=== PATIENT | male | born 1935 | race Caucasian/White ===

== ENCOUNTER 2018-02-23 11:50 | Outpatient (CLI) | payer MEDICARE, OTHER ==
--- NOTE | 2018-02-23 12:39 | XRAY Report ---
Procedure Date: 02/23/2018 Accession Number: [id number] / [id number] Procedure: XR - Chest 2 View X-Ray CPT Code: 04149 FULL RESULT: EXAM: Chest 2 View X-Ray DATE: 02/23/2018 12:33 PM CLINICAL HISTORY: COUGH COMPARISON: 11/10/2015 TECHNIQUE: 2 views. FINDINGS: Lungs/Pleura: Peripheral fibrotic changes appear stable. No new consolidation, effusion, or pneumothorax. Mediastinum: Stable pacemaker. No cardiomegaly. Other: None. IMPRESSION: Stable peripheral fibrosis. No evidence of acute cardiopulmonary disease. RADIA
== END 2018-02-23 11:51 | disposition home or self-care (01) ==
LOC: DI 11:50
PROVIDERS: ATTEND Internal Medicine
DX: R05 Cough (principal)
CPT/HCPCS: 71046

== ENCOUNTER 2018-05-12 09:00 | Outpatient (CLI) | payer MEDICARE, OTHER ==
[2018-05-12 13:51] LABS: CRP - C-REACTIVE PROTEIN 3.1 mg/dL (0-1.0)
[2018-05-12 13:54] LABS: URIC ACID 5.9 mg/dL (2.6-7.2)
[2018-05-12 19:22] LABS: RHEUMATOID FACTOR NEGATIVE (Negative)
[2018-05-15 14:32] LABS: ANA SCREEN POSITIVE (NEGATIVE)
== END 2018-05-12 09:01 | disposition home or self-care (01) ==
LOC: LAB.WCP 09:00
PROVIDERS: ATTEND Internal Medicine Rheumatology
DX: M25.50 Pain in unspecified joint (principal); R70.0 Elevated erythrocyte sedimentation rate
CPT/HCPCS: 36415; 84550; 85651; 86038; 86039; 86140; 86200; 86430

== ENCOUNTER 2018-05-27 14:36 | Emergency (ER) | payer MEDICARE, OTHER ==
[2018-05-27] MEDS ORDERED: ONDANSETRON 4 MG/2 ML VIAL IVP STA (15:21)
--- NOTE | 2018-05-27 15:24 | ED Physician Documentation ---
PD HPI ABD PAIN - Stated complaint Stated Complaint: RLQ abd pain - Chief complaint Chief Complaint: Abd Pain - History obtained from History obtained from: Patient, Family - History of Present Illness Timing - onset: How many weeks ago (3-4) Timing - duration: Weeks (3-4) Timing - details: Gradual onset Pain level max: 8 Pain level now: 5 Quality: Aching, Pain Location: RLQ Radiation: No: Chest, , Lower back, Left flank, Left shoulder, Right flank, Right shoulder, Upper back Improved by: Other (rest) Worsened by: Moving, Other (coughing) Associated symptoms: Nausea, Dysuria (mild). No: Fever, Vomiting, Hematemesis, Diarrhea, Constipation, Melena, Hematochezia, Hematuria, Chest pain Similar symptoms before: Has not had sx before Recently seen: Not recently seen Review of Systems Ten Systems: 10 systems reviewed and negative Constitutional: denies: Fever, Chills Ears: denies: Ear pain Nose: denies: Rhinorrhea / runny nose, Congestion Throat: denies: Sore throat Cardiac: denies: Chest pain / pressure Respiratory: denies: Cough GI: reports: Nausea. denies: Vomiting, Diarrhea Skin: denies: Rash Musculoskeletal: denies: Neck pain, Back pain Neurologic: denies: Headache PD PAST MEDICAL HISTORY - Past Medical History Cardiovascular: Other (heart block) Respiratory: None Endocrine/Autoimmune: None GI: GERD, Colon polyps : None HEENT: Glaucoma Psych: None Musculoskeletal: Gout Derm: Eczema - Past Surgical History Past Surgical History: Yes General: Colonoscopy Ortho: Knee replacement Cardiovascular: Pacemaker HEENT: Cataracts, Detached retina repair, Tonsil/Adenoidectomy - Present Medications Home Medications: Ambulatory Orders Medication Instructions Recorded Confirmed Cholecalciferol (Vitamin D3) 2,000 unit PO DAILY 05/18/13 11/10/15 [Vitamin D3] Dorzolamide HCl/Timolol Maleat 10 ml OP BID 05/18/13 11/10/15 [Dorzolamide-Timolol Eye Drops] Ferrous Gluconate 324 mg PO DAILY 05/18/13 11/10/15 Lactobacillus Rhamnosus GG 1 each PO DAILY 05/18/13 11/10/15 [Probiotic] Latanoprost 0.005% Ophth Drops 1 drops OPTH QPM 05/18/13 11/10/15 [Xalatan] Saw [place] 160 mg PO DAILY 05/18/13 11/10/15 Timolol 0.5% Ophth Drops [Timoptic] 1 drops OPTH BID 05/18/13 11/10/15 Turmeric Root Extract [Turmeric] 500 mg PO DAILY 05/18/13 11/10/15 Cetirizine [ZyrTEC] 10 mg ORAL DAILY 11/10/15 11/10/15 Indomethacin 25 mg ORAL TID PRN 11/10/15 11/10/15 diphenhydrAMINE [Benadryl] 25 mg ORAL QPM 11/10/15 11/10/15 Meloxicam [Mobic] 7.5 mg PO BID PRN #20 tablet 05/27/18 Polyethylene Glycol 3350 [Miralax] 17 gm PO DAILY PRN #1 bottle 05/27/18 - Allergies Allergies/Adverse Reactions: Allergies Allergy/AdvReac Type Severity Reaction Status Date / Time cephalexin monohydrate * Allergy Severe Respiratory Verified 05/27/18 14:55 [From Keflex] - Social History Does the pt smoke?: No Smoking Status: Never smoker Does the pt drink ETOH?: Yes Does the pt have substance abuse?: No - Immunizations Immunizations are current?: Yes - POLST Patient has POLST: No PD ED PE NORMAL - Vitals Vital signs reviewed: Yes - General General: Alert and oriented X 3, No acute distress - HEENT HEENT: Moist mucous membranes - Neck Neck: Supple, no meningeal sign - Cardiac Cardiac: RRR, Strong equal pulses - Respiratory Respiratory: No respiratory distress, Clear bilaterally - Abdomen Abdomen: Soft, Non tender, Non distended - Back Back: No CVA TTP, No spinal TTP - Derm Derm: Warm and dry - Extremities Extremities: No tenderness to palpate, Normal ROM s pain, No edema, No calf tenderness / cord - Neuro Neuro: Alert and oriented X 3 Results - Vitals Vitals: Vital Signs - 24 hr 05/27/18 14:51 Temperature 36.3 C L Heart Rate 64 Respiratory 18 Rate Blood Pressure 133/101 H O2 Saturation 98 Oxygen O2 Source Room air - Rads (name of study) CT abd/pelvis Radiology: Prelim report reviewed, EMP read contemporaneously, See rad report (Findings suggestive of epiploic appendagitis in the left abdomen, adjacent to the descending colon. If there is no pain currently, this could be early or resolving. 2. No other finding suspicious for acute infectious or inflammatory process in the abdomen or pelvis. Specifically, no evidence for acute appendicitis or diverticulitis. 3. Findings of interstitial lung disease in usual interstitial pneumonia (UIP) distribution in the lung bases. ) PD MEDICAL DECISION MAKING - ED course Complexity details: reviewed results, re-evaluated patient, considered differential, d/w patient, d/w family ED course: Patient is an 82-year-old male with abdominal pain for the past 3-4 weeks. Does appear to have resolving epiploic appendicitis on CT. Suspect his pain will improve over the next week or so. Also appears to have constipation and will place on MiraLAX for this. Normal appendix. No diverticulitis. No acute laboratory abnormalities to explain his symptoms. Patient and family counseled regarding signs and symptoms for which I believe and urgent re-evaluation would be necessary. Patient with good understanding of and agreement to plan and is comfortable going home at this time This document was made in part using voice recognition software. While efforts are made to proofread this document, sound alike and grammatical errors may occur. - Sepsis Event Vital Signs: Vital Signs - 24 hr 05/27/18 14:51 Temperature 36.3 C L Heart Rate 64 Respiratory 18 Rate Blood Pressure 133/101 H O2 Saturation 98 Oxygen O2 Source Room air Departure - Departure Disposition: 01 Home, Self Care Clinical Impression: Epiploic appendagitis Abdominal pain Qualifiers: Abdominal location: right lower quadrant Qualified Code(s): R10.31 - Right lower quadrant pain Constipation Qualifiers: Constipation type: unspecified constipation type Qualified Code(s): K59.00 - Constipation, unspecified Condition: Good Instructions: ED Abdominal Pain Unkn Cause, ED Constipation Follow-Up: Michelle Camacho MD [Primary Care Provider] - Within 1 week Prescriptions: Meloxicam [Mobic] 7.5 mg PO BID PRN #20 tablet PRN Reason: Pain Polyethylene Glycol 3350 [Miralax] 17 gm PO DAILY PRN #1 bottle PRN Reason: Constipation Comments: Drink plenty of fluids. Return if you worsen. This should improve over the next week. Discharge Date/Time: 05/27/18 17:50
[2018-05-27] MEDS ORDERED: IOPAMIDOL-300 100 ML VIAL ONE (15:29)
[2018-05-27 15:52] LABS: BASOPHILS # (AUTO) 0.1 10^3/uL (0.0-0.1); BASOPHILS % (AUTO) 1.1 %; EOSINOPHILS # (AUTO) 0.3 10^3/uL (0.0-0.7); EOSINOPHILS % (AUTO) 4.6 %; HGB - HEMOGLOBIN 11.9 g/dL (14.0-18.0); LYMPHOCYTES # (AUTO) 1.5 10^3/uL (1.5-3.5); LYMPHOCYTES % (AUTO) 25.5 %; MEAN CORPUSCULAR HEMOGLOBIN 29.9 pg (27.0-31.0); MEAN CORPUSCULAR HGB CONC 33.2 g/dL (32.0-36.0); MEAN CORPUSCULAR VOLUME 90.1 fL (80.0-94.0); MEAN PLATELET VOLUME 6.4 fL (7.4-11.4); MONOCYTES # (AUTO) 0.5 10^3/uL (0.0-1.0); MONOCYTES % (AUTO) 9.1 %; NEUTROPHILS # (AUTO) 3.6 10^3/uL (1.5-6.6); NEUTROPHILS % (AUTO) 59.7 %; PLT - PLATELET COUNT 276 10^3/uL (130-450); RED BLOOD COUNT 3.99 10^6/uL (4.70-6.10); RED CELL DISTRIBUTION WIDTH 15.8 % (12.0-15.0)
[2018-05-27 15:58] LABS: ALBUMIN/GLOBULIN RATIO 1.1 (1.0-2.2); BILIRUBIN,TOTAL 0.7 mg/dL (0.2-1.0); CALCIUM 9.1 mg/dL (8.5-10.3); CREATININE 0.8 mg/dL (0.6-1.2); TOTAL PROTEIN 7.6 g/dL (6.7-8.2)
[2018-05-27 16:09] LABS: BILIRUBIN,URINE NEGATIVE (NEGATIVE); GLUCOSE, URINE (UA) NEGATIVE (NEGATIVE); KETONES,URINE (UA) NEGATIVE (NEGATIVE); LEUKOCYTE ESTERASE, URINE NEGATIVE (NEGATIVE); NITRITE,URINE NEGATIVE (NEGATIVE); OCCULT BLOOD,URINE TRACE-INTA (NEGATIVE); PH,URINE 6.5 PH (5.0-7.5); PROTEIN,URINE NEGATIVE (NEGATIVE); UROBILINOGEN,URINE 0.2 (NORMAL) E.U./dL (NORMAL)
[2018-05-27 16:10] LABS: CLARITY,URINE CLEAR (CLEAR)
[2018-05-27] MEDS ORDERED: IOPAMIDOL-300 100 ML VIAL IVP ONE (16:34)
--- NOTE | 2018-05-27 17:19 | CT Report ---
Reason: RLQ abd pain Procedure Date: 05/27/2018 Accession Number: [id number] / [id number] Procedure: CT - Abdomen/Pelvis W/ CPT Code: FULL RESULT: EXAM: CT ABDOMEN AND PELVIS EXAM DATE: 05/27/2018 04:35 PM. CLINICAL HISTORY: RLQ abd pain. COMPARISONS: CT of the abdomen and pelvis from 06/22/2007. CTA chest from 11/10/2015. TECHNIQUE: Routine helical CT imaging was performed through the abdomen and pelvis. IV contrast: 100 cc Isovue-370. Enteric contrast: No. Reconstructions: Coronal and sagittal. In accordance with CT protocol optimization, one or more of the following dose reduction techniques were utilized for this exam: automated exposure control, adjustment of mA and/or KV based on patient size, or use of iterative reconstructive technique. FINDINGS: Lung Bases: There are peripheral reticular opacities in the lung bases, present previously and suggestive of interstitial lung disease. Cardiac leads demonstrated in the right atrium and ventricle. Liver: There is a subcentimeter hypoattenuating focus in segment 7, which is too small to characterize but was present previously. Otherwise unremarkable. Gallbladder/Bile Ducts: Unremarkable. Spleen: There is a 9 mm enhancing lesion in the medial spleen (series 3, image 17), which is indeterminate but could represent a hemangioma. A faintly enhancing lesion appears to have been present in 2017. There is a subcentimeter hypoattenuating focus in the posterior aspect (series 3, image 18), which is indeterminate but may also have been present in 2006. Pancreas: Unremarkable. Adrenal Glands: No nodules. Kidneys: There is an ill-defined hypoattenuating focus in the interpolar region of the left kidney (series 3, image 36), which is too small to characterize. No hydronephrosis. Peritoneal Cavity/Bowel: No evidence of bowel obstruction or inflammation. Appendix is within normal limits. There is diverticulosis of the descending and sigmoid colon. No evidence for acute diverticulitis. There is an ovoid area of haziness in the left abdomen, along the antimesenteric border of the descending colon (series 3, image 46). The appearance is suggestive of epiploic appendagitis. Pelvic Organs: Urinary bladder is moderately distended. No pelvic adenopathy or free fluid. Vasculature: No abdominal aortic aneurysm. Bones: Multilevel degenerative changes are present in the spine. No suspicious osseous lesion. Other: No retroperitoneal adenopathy. IMPRESSION: 1. Findings suggestive of epiploic appendagitis in the left abdomen, adjacent to the descending colon. If there is no pain currently, this could be early or resolving. 2. No other finding suspicious for acute infectious or inflammatory process in the abdomen or pelvis. Specifically, no evidence for acute appendicitis or diverticulitis. 3. Findings of interstitial lung disease in usual interstitial pneumonia (UIP) distribution in the lung bases. RADIA
[2018-05-27 17:45] VITALS: BP 147/86
== END 2018-05-27 17:50 | disposition home or self-care (01) ==
LOC: ED 14:36
DX: K63.89 Other specified diseases of intestine (principal); R10.31 Right lower quadrant pain; K59.00 Constipation, unspecified
CPT/HCPCS: 36415; 74177; 80053; 81003; 83690; 85025; 99283; Q9967; 81001; 87086

== ENCOUNTER 2018-06-09 09:58 | Outpatient (CLI) | payer MEDICARE, OTHER ==
[2018-06-09 13:05] LABS: PT - PROTHROMBIN TIME 11.7 secs (9.9-12.6)
[2018-06-09 13:10] LABS: CREATININE 0.8 mg/dL (0.6-1.2)
== END 2018-06-09 09:59 | disposition home or self-care (01) ==
LOC: LAB.N 09:58
PROVIDERS: ATTEND Orthopaedic Surgery Foot and Ankle Surgery
DX: M47.26 Other spondylosis with radiculopathy, lumbar region (principal)
CPT/HCPCS: 36415; 82565; 84520; 85014; 85049; 85610; 85730

== ENCOUNTER 2018-09-06 10:52 | Day surgery (SDC) | payer MEDICARE, OTHER ==
[2018-09-06] MEDS ORDERED: LACTATED RINGERS 1,000 ML IV ONE ×2 (11:40→11:47)
[2018-09-06] MEDS ORDERED: fentaNYL 250 MCG/5 ML VIAL IVP ONE (11:42)
[2018-09-06] MEDS ORDERED: MIDAZOLAM 2 MG/2 ML VIAL IVP ONE (11:42)
[2018-09-06 12:49] VITALS: BP 102/81
== END 2018-09-06 10:53 | disposition home or self-care (01) ==
LOC: SDS 10:52
PROVIDERS: ATTEND Surgery
PROC: 0DBK8ZZ Excision of Ascending Colon, Via Natural or Artificial Opening Endoscopic (ICD-10-PCS; principal; 2018-09-06 12:15)
DX: Z12.11 Encounter for screening for malignant neoplasm of colon (principal); D12.2 Benign neoplasm of ascending colon; K57.30 Diverticulosis of large intestine without perforation or abscess without bleeding; K64.8 Other hemorrhoids; Z87.891 Personal history of nicotine dependence
CPT/HCPCS: 45385; J3010; J7120

== ENCOUNTER 2018-09-20 08:00 | Outpatient (CLI) | payer MEDICARE, OTHER ==
[2018-09-20 18:58] LABS: BASOPHILS # (AUTO) 0.1 10^3/uL (0.0-0.1); EOSINOPHILS # (AUTO) 0.3 10^3/uL (0.0-0.7); EOSINOPHILS % (AUTO) 4.6 %; HGB - HEMOGLOBIN 11.7 g/dL (14.0-18.0); LYMPHOCYTES # (AUTO) 1.4 10^3/uL (1.5-3.5); LYMPHOCYTES % (AUTO) 25.2 %; MEAN CORPUSCULAR HEMOGLOBIN 29.9 pg (27.0-31.0); MEAN CORPUSCULAR HGB CONC 32.2 g/dL (32.0-36.0); MEAN CORPUSCULAR VOLUME 92.7 fL (80.0-94.0); MEAN PLATELET VOLUME 6.5 fL (7.4-11.4); MONOCYTES # (AUTO) 0.5 10^3/uL (0.0-1.0); MONOCYTES % (AUTO) 8.4 %; NEUTROPHILS # (AUTO) 3.3 10^3/uL (1.5-6.6); NEUTROPHILS % (AUTO) 60.8 %; PLT - PLATELET COUNT 433 10^3/uL (130-450); RED BLOOD COUNT 3.93 10^6/uL (4.70-6.10); RED CELL DISTRIBUTION WIDTH 15.7 % (12.0-15.0); WHITE BLOOD COUNT 5.5 x10^3/uL (4.8-10.8)
[2018-09-20 19:23] LABS: CREATININE 0.9 mg/dL (0.6-1.2)
== END 2018-09-20 08:01 ==
LOC: LAB.N 08:00
PROVIDERS: ATTEND Nurse Anesthetist, Certified Registered
DX: C18.2 Malignant neoplasm of ascending colon (principal); Z95.0 Presence of cardiac pacemaker
CPT/HCPCS: 36415; 80048; 85025; 86850; 86900; 86901

== ENCOUNTER 2018-09-21 07:10 | Inpatient (IN) | payer MEDICARE, OTHER ==
[2018-09-21] MEDS ORDERED: cefOXitin 2 GM in SODIUM CHLORIDE 0.9% MINIBAG 100 ML IV ONE (07:38)
[2018-09-21] MEDS ORDERED: LACTATED RINGERS 1,000 ML IV ONE ×2 (08:08→12:03)
--- NOTE | 2018-09-21 08:13 | ANESTHESIA ---
Pre-Anesthesia VS, & Labs - Diagnosis Right Colon Lesion Highly suspicious for cancer - Procedure Laparoscopic right hemicolectomy possible open right hemicolectomy Vital Signs: Temp Pulse Resp BP Pulse Ox 36.7 C 66 18 132/71 H 98 09/21/18 07:45 09/21/18 07:45 09/21/18 07:45 09/21/18 07:45 09/21/18 07:45 Height 5 ft 10 in Weight (kg) 89.9 kg Body Mass Index 28.7 - Lab Results Lab results reviewed: Yes Home Medications and Allergies Home Medications: Ambulatory Orders Cyanocobalamin (Vitamin B-12) [Vitamin B-12 (100mcg tab)] 100 mcg PO DAILY 09/17/18 Methylsulfonylmethane [MSM] 1,000 mg PO DAILY 09/17/18 [place]-3/Dha/Epa/Fish Oil [Fish Oil 1,000 mg Softgel] 1 each PO DAILY 09/17/18 Ubidecarenone/Vit E Acetate [Co Q-10 100 mg Softgel] 1 each PO DAILY 09/17/18 Valacyclovir HCl [Valtrex] 1,000 mg PO ONCE PRN 09/17/18 Vitamin E 1,000 unit PO DAILY 09/17/18 Cholecalciferol (Vitamin D3) [Vitamin D3] 2,000 unit PO DAILY 05/18/13 Ferrous Gluconate 324 mg PO DAILY 05/18/13 Latanoprost 0.005% Ophth Drops [Xalatan] 1 drops OPTH QPM 05/18/13 Timolol 0.5% Ophth Drops [Timoptic] 1 drops OPTH BID 05/18/13 Turmeric Root Extract [Turmeric] 500 mg PO DAILY 05/18/13 Indomethacin 25 mg ORAL TID PRN 11/10/15 Cyanocobalamin (Vitamin B-12) [Vitamin B-12 (100mcg tab)] 100 mcg PO DAILY 09/17/18 Methylsulfonylmethane [MSM] 1,000 mg PO DAILY 09/17/18 [place]-3/Dha/Epa/Fish Oil [Fish Oil 1,000 mg Softgel] 1 each PO DAILY 09/17/18 Ubidecarenone/Vit E Acetate [Co Q-10 100 mg Softgel] 1 each PO DAILY 09/17/18 Valacyclovir HCl [Valtrex] 1,000 mg PO ONCE PRN 09/17/18 Vitamin E 1,000 unit PO DAILY 09/17/18 Allergies/Adverse Reactions: Allergies Allergy/AdvReac Type Severity Reaction Status Date / Time cephalexin monohydrate * Allergy Severe Respiratory Verified 05/27/18 14:55 [From Keflex] Anes History & Medical History - Anesthetic History Anesthesia Complications: reports: No previous complications - Medical History Cardiovascular: reports: None, Arrhythmia, Other (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) Pulmonary: reports: None Gastrointestinal: reports: GI bleed, Colon polyps Urinary: reports: None Neuro: reports: None Musculoskeletal: reports: Osteoarthritis, Gout Endocrine/Autoimmune: reports: None Blood Disorders: reports: None Skin: reports: Eczema Smoking Status: Never smoker Psychosocial: reports: Alcohol (1-2 glasses of wine per day) - Surgical History General: Colonoscopy, Other Eyes Ears Nose Throat (EENT): Cataracts, Detached retina repair, Tonsil/Adenoidectomy Cardiothoracic: Pacemaker Orthopedic: Knee replacement, Other Results - EKG Results EKG Comparison: Reviewed EKG Exam General: Alert, Oriented x3, Cooperative, No acute distress Dental: WNL Mouth Openin Fingerbreadth Neck Mobility: Normal Mallampati classification: I Thyromental Distance: 4-6 cm Respiratory: Lungs clear, Normal breath sounds, No respiratory distress, No accessory muscle use Cardiovascular: Regular rate, Normal S1, Normal S2, No murmurs Mental/Cognitive Status: Alert/Oriented X3, Normal for patient Plan Anesthesia Type: General, Epidural (For post op pain control per surgeon request) Regional Block: Per Surgeon's request for Post Op pain control Consent for Procedure(s) Verified and Reviewed: Yes Code Status: Attempt Resuscitation ASA classification: 2-Mild systemic disease Is this case an emergency?: No
[2018-09-21] MEDS ORDERED: ePHEDrine 50 MG/ML VIAL IVP ONE ×2 (09:09→10:30)
--- NOTE | 2018-09-21 09:36 | ANESTHESIA PROCEDURE NOTE ---
Anesthesia Epidural Template - Other Comments Other Comments: [id number] Epidural [address] requested by Dr. Silverio for post op pain control. Risks and benefits discussed with patient and patient's . Informed consent obtained. Patient was placed in a sitting position. T7-T8 interspace was localized with 1% lidocaine. A 17G tuohy needle was inserted and BRODY was at 6cm. Epidural catheter was inserted with ease to 10cm. Negative aspiration for blood and CSF was noted. A total of 5ml 1.5% lido plus epi was used as a test dose. Negative test dose was noted. Epidural catheter was secured with opsite and tape. See nurses notes for vital signs.
[2018-09-21] MEDS ORDERED: SODIUM CHLORIDE 0.9% 10 ML ONE (09:42)
[2018-09-21] MEDS ORDERED: NALBUPHINE 10 MG/ML AMP IVP PRN (10:05)
[2018-09-21] MEDS ORDERED: fent/BUPIV 2 MCG/0.125% 250 ML EP PRN (10:05)
[2018-09-21] MEDS ORDERED: ONDANSETRON 4 MG/2 ML VIAL IVP PRN ×2 (10:05→12:20)
[2018-09-21] MEDS ORDERED: BUPIVACAINE 0.5% PF 30 ML VIAL SUBQ ONE (10:11)
[2018-09-21] MEDS ORDERED: fentaNYL 250 MCG/5 ML VIAL IVP ONE (10:30)
[2018-09-21] MEDS ORDERED: ROCURONIUM 50 MG/5 ML VIAL IVP ONE (10:30)
[2018-09-21] MEDS ORDERED: PROPOFOL 200 MG/20 ML VIAL IVP ONE (10:30)
[2018-09-21] MEDS ORDERED: NEOSTIGMINE 1 MG/1 ML 10 ML MDV IVP ONE (10:30)
[2018-09-21] MEDS ORDERED: GLYCOPYRROLATE 1 MG/5 ML VIAL IVP ONE (10:30)
[2018-09-21] MEDS ORDERED: LIDOCAINE-MPF 2% 5 ML VIAL IM ONE (10:30)
[2018-09-21] MEDS ORDERED: MORPHINE 2 MG/ML CARPUJECT IVP PRN (12:20)
[2018-09-21] MEDS ORDERED: ACETAMINOPHEN 1,000 MG/100 ML 100 ML IV PRN (12:20)
[2018-09-21] MEDS ORDERED: oxyCODONE 5 MG TABLET PO PRN (12:20)
[2018-09-21] MEDS ORDERED: SODIUM CHLORIDE FLUSH 0.9% 10 ML SYRINGE IVP PRN (12:20)
--- NOTE | 2018-09-21 12:30 | OPERATIVE REPORT ---
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 - Other Other Information/Narrative: OPERATIVE DESCRIPTION/REPORT: After verbal and written informed consent was obtained detailing the risks of infection, bleeding with all of its risks including transfusion, and the patient was brought to the operative suite and placed initially in the supine position on the operating room table and then once anesthetized in stirrups taking care to pad all extremities. Monitoring devices were applied along with TEDs and pneumatic compressive stockings. Care was taken to avoid pressure points. Prophylactic antibiotics were given. A epidural catheter was placed by Fifi Young CRNA for postoperative pain control in accordance with her ERAS protocol. An adequate level of general endotracheal anesthesia was established by Dr. Jaya Lord. The abdomen was then prepped with ChloraPrep and draped in a sterile fashion. A "time in" then confirmed that the patient was identified with 3 identifiers (name, date and medical record number), the history and physical was in the chart, the signed consent confirming the procedure was in the chart, the patient was in the correct position, the aforementioned prophylactic measures were in place or given, we had the correct personnel and equipment to complete the procedure and that anesthesia, surgery and nursing were given an opportunity to express any concerns. A 4 cm transverse incision was made just supraumbilically starting at the umbilicus and going to the patient's right. Dissection down to the anterior fascia was completed using a scalpel as well as Bovie electrocautery for hemostasis. The anterior fascia was incised using Bovie electrocautery and the rectus muscles were retracted laterally. The posterior fascia and the peritoneum were incised getting entry into the abdomen without incident. The incision was lengthened to the length of our skin incision. Through this opening was placed a SILS port and 3 ports were placed into the SILS gel. The abdomen was then insufflated using carbon dioxide to a steady-state pressure of 12 mmHg with carbon dioxide. The abdomen was then examined and no other overt pathology was noted. In order to complete the operation 2 5 mm ports was placed superior and inferior to the SILS port. This is placed under direct vision without incident. The patient was then place in a rather steep Trendelenberg position with the left lateral decubitus tilt and a medial to lateral approach was employed. The interface of the mesentary and the retroperitoneum was opened using serial application of Ligasure. In so doing and with some traction and countertraction the ileocolic and right colic arteries and their corresponding veins came into view, as well as relatively avascular mesenteric windows, above and below the vessels. Both arteries were circumferentially isolated. The right ureter was seen and carefully preserved. These windows were used for retraction lifting the mesentary to the anterior abdominal wall so as to minimize trauma to the tissues. With the ileocolic artery and right colonic artery skeletonized and the right ureter clearly and safely away from the dissection the arteries and veins were ligated using Ligasure as close to their origin as possible to ensure that an adequate lymph node yield was achieved. The appendix as well as the terminal ileum were then freed from their lateral attachments using serial application of LigaSure. Dissection from inferior to superior along the white line of [place] then allowed the colon to be freely mobilized all the way up to the hepatic flexure. The hepatic flexure was taken in a similar manner with using serial application of the LigaSure. At all times, care was taken to ensure the duodenum was visualized and unharmed. In this manner the right colon could be brought to the midline easily. Some minimal attachements of the omentum to the distal right colon and proximal transverse colon were taken using serial application of the Ligasure. With this final piece of mobilization I was convinced that the right colon could come me dially and the transverese colon inferiorly to allow for resection and anastamosis at the skin level. The Prestige grasper was placed through one of the SILS ports and the right colon was grasped. The insufflation was stopped and the SILS port removed leaving the sleeve in place. The Prestige grasper was then used to bring the right colon terminal ileum and proximal transverse colon up into the wound. Two 3-0 Vicryl sutures were used to align the ileum to the mid transverse colon using the antimesenteric border of the ileum and one of the tenia. Bowel clamps were placed on the terminal ileum as well as the proximal transverse colon to minimize spillage. A small colotomy and enterotomy was then made using Bovie electrocautery just above the distal ileal suture and proximal to the mid colonic suture to allow placement of a RENNY 75 stapler. The stapler was placed through these openings and fired thus creating the ileocolostomy. The RENNY stapler was reloaded and the fired across the ileum and colon thus resecting the terminal ileum, appendix, right colon and proximal hepatic flexure and completing the anastomosis. The specimen was sent off the operative field. It did not require orientation. Digital manipulation showed that the anastomosis was widely patent. This staple line was then oversewn using 3-0 Vicryl sutures in a Lembert fashion. The anastamosis was visually checked fort a leak and there was none. There was no bleeding noted. The anastomosis was then dropped into the abdomen and the SILS port was reapplied and the abdomen reinsufflated. The abdomen was copiously irrigated using 2 L warm sterile saline. The effluent was clear. The posterior fascia and peritoneum at the umbilicus were approximated using a 0 Vicryl suture in a running fashion. The anterior fascia was approximated using a looped 0 PDS in a running fashion. The port sites as well as the supralateral umbilical incision were injected with half percent Marcaine at the fascial and skin level under direct vision. Meticulous hemostasis was obtained using Bovie electrocautery. The skin incisions were approximated with a running 4-0 Monocryl. Dermabond was applied above this. At this point a time out was performed that confirmed that all the counts were correct, the procedure that was performed, the blood loss, the IV fluids administered, and the patients condition. The prep was washed off and Benzoin and steristrips were applied. Having tolerated the procedure well, the patient was subsequently extubated and taken to recovery room in good and stable condition. [employer] disclaimer: This document was created in part using voice recognition technology. Because of the inherent limitations of the system ([employer]'s [employer] Dict[employer] user manual states that the licensee understands that speech recognition is a statistical process and that recognition errors are inherent in the process), occasional same sounding word substitutions and grammatical errors do occur and persist despite proofreading. Please read this document for context.
[2018-09-21] MEDS: LACTATED RINGERS 1,000 ML IV SCH ×2 (13:08→22:56)
[2018-09-21] MEDS ORDERED: PHENOL THROAT SPRAY 177 ML MM PRN (13:40)
--- NOTE | 2018-09-21 17:05 | MISCELLANEOUS PROVIDER NOTE ---
Miscellaneous Provider Note - - Note: Reviewed surgical findings with patient and . Patient is doing well. States that he is thirsty. Has zero pain. States that his abdomen is numb. I wrote for his ophthalmic medications and am holding his oral medications for now.
[2018-09-21] MEDS: SODIUM CHLORIDE FLUSH 0.9% 10 ML SYRINGE IVP SCH (18:59)
[2018-09-21] MEDS: TIMOLOL 0.5% EACHEYE SCH (20:10)
[2018-09-21] MEDS: LATANOPROST 0.005% EACHEYE SCH (20:10)
[2018-09-22] MEDS: SODIUM CHLORIDE FLUSH 0.9% 10 ML SYRINGE IVP SCH ×3 (03:54→17:21)
[2018-09-22 05:33] LABS: BASOPHILS % (AUTO) 0.5 %; EOSINOPHILS # (AUTO) 0.1 10^3/uL (0.0-0.7); EOSINOPHILS % (AUTO) 1.7 %; HGB - HEMOGLOBIN 10.1 g/dL (14.0-18.0); LYMPHOCYTES # (AUTO) 1.2 10^3/uL (1.5-3.5); LYMPHOCYTES % (AUTO) 23.5 %; MEAN CORPUSCULAR HGB CONC 32.9 g/dL (32.0-36.0); MEAN CORPUSCULAR VOLUME 91.2 fL (80.0-94.0); MONOCYTES # (AUTO) 0.5 10^3/uL (0.0-1.0); NEUTROPHILS # (AUTO) 3.2 10^3/uL (1.5-6.6); NEUTROPHILS % (AUTO) 64.3 %; PLT - PLATELET COUNT 334 10^3/uL (130-450); RED BLOOD COUNT 3.37 10^6/uL (4.70-6.10); RED CELL DISTRIBUTION WIDTH 15.6 % (12.0-15.0); WHITE BLOOD COUNT 4.9 x10^3/uL (4.8-10.8)
[2018-09-22 05:45] LABS: ALBUMIN 3.1 g/dL (3.2-5.5); BILIRUBIN,TOTAL 0.9 mg/dL (0.2-1.0); CALCIUM 8.7 mg/dL (8.5-10.3); CREATININE 0.7 mg/dL (0.6-1.2); TOTAL PROTEIN 6.1 g/dL (6.7-8.2)
[2018-09-22] MEDS: PANTOPRAZOLE 40 MG TABLET PO SCH (07:23)
[2018-09-22] MEDS: FLUTICASONE 50 MCG NAS SCH (08:33)
[2018-09-22] MEDS: TIMOLOL 0.5% EACHEYE SCH ×2 (08:34→22:25)
[2018-09-22] MEDS: LACTATED RINGERS 1,000 ML IV SCH (21:13)
[2018-09-22] MEDS: LATANOPROST 0.005% EACHEYE SCH (22:25)
--- NOTE | 2018-09-22 23:57 | PROVIDER PROGRESS NOTE ---
Subjective - General Admit Date: 09/21/18 Procedure Date: 09/21/18 Post Op Days: 1 Procedure Performed: Laparoscopic right hemicolectomy - Review of Systems Wound/Incisions: positive: Healing well Drain Type: None. General: positive: No symptoms HEENT: positive: No symptoms Pulmonary: positive: No symptoms Cardiovascular: positive: No symptoms Gastrointestinal: positive: No symptoms, Other (He did pass gas today.) Genitourinary: positive: Retention (Requiring Bennett to be replaced.) Musculoskeletal: positive: No symptoms Psychiatric: positive: No symptoms Objective - Patient Data Reviewed Vital Signs: Yes Vital Signs: Vital Signs x48h Temp Pulse Resp BP Pulse Ox 09/22/18 21:14 37.1 C 60 16 107/49 L 97 09/22/18 16:04 36.1 C L 60 18 127/58 L 100 Weight: Weight 09/20/18 09/21/18 09/22/18 23:59 23:59 23:59 Weight (kg) 89.9 kg Intake & Output: Intake and Output Totals x24h 09/20/18 09/21/18 09/22/18 23:59 23:59 23:59 Intake Total 3280 3090 Output Total 1800 9700 Balance 1480 -6610 - Lab Results Lab Results: 09/22/18 05:05 09/22/18 05:05 Other Lab Results: Lab Results x24hrs 09/22/18 09/22/18 09/22/18 Range/Units 16:52 11:51 05:32 WBC (4.8-10.8) x10^3/uL RBC (4.70-6.10) 10^6/uL Hgb (14.0-18.0) g/dL Hct (42.0-52.0) % MCV (80.0-94.0) fL MCH (27.0-31.0) pg MCHC (32.0-36.0) g/dL RDW (12.0-15.0) % Plt Count (130-450) 10^3/uL MPV (7.4-11.4) fL Neut # (Auto) (1.5-6.6) 10^3/uL Lymph # (Auto) (1.5-3.5) 10^3/uL [place] # (Auto) (0.0-1.0) 10^3/uL Eos # (Auto) (0.0-0.7) 10^3/uL Baso # (Auto) (0.0-0.1) 10^3/uL Absolute Nucleated RBC x10^3/uL Nucleated RBC % /100WBC Sodium (135-145) mmol/L Potassium (3.5-5.0) mmol/L Chloride (101-111) mmol/L Carbon Dioxide (21-32) mmol/L Anion Gap (6-13) BUN (6-20) mg/dL Creatinine (0.6-1.2) mg/dL Estimated GFR (MDRD) (>89) Glucose (70-100) mg/dL POC Whole Bld Glucose 71 78 87 (70 - 100) mg/dL Calcium (8.5-10.3) mg/dL Total Bilirubin (0.2-1.0) mg/dL AST (10-42) IU/L ALT (10-60) IU/L Alkaline Phosphatase (42-121) IU/L Total Protein (6.7-8.2) g/dL Albumin (3.2-5.5) g/dL Globulin (2.1-4.2) g/dL Albumin/Globulin Ratio (1.0-2.2) 09/22/18 09/22/18 09/22/18 Range/Units 05:05 05:05 00:19 WBC 4.9 (4.8-10.8) x10^3/uL RBC 3.37 L (4.70-6.10) 10^6/uL Hgb 10.1 L (14.0-18.0) g/dL Hct 30.8 L (42.0-52.0) % MCV 91.2 (80.0-94.0) fL MCH 30.0 (27.0-31.0) pg MCHC 32.9 (32.0-36.0) g/dL RDW 15.6 H (12.0-15.0) % Plt Count 334 (130-450) 10^3/uL MPV 6.0 L (7.4-11.4) fL Neut # (Auto) 3.2 (1.5-6.6) 10^3/uL Lymph # (Auto) 1.2 L (1.5-3.5) 10^3/uL [place] # (Auto) 0.5 (0.0-1.0) 10^3/uL Eos # (Auto) 0.1 (0.0-0.7) 10^3/uL Baso # (Auto) 0.0 (0.0-0.1) 10^3/uL Absolute Nucleated RBC 0.00 x10^3/uL Nucleated RBC % 0.1 /100WBC Sodium 132 L (135-145) mmol/L Potassium 3.7 (3.5-5.0) mmol/L Chloride 98 L (101-111) mmol/L Carbon Dioxide 27 (21-32) mmol/L Anion Gap 7.0 (6-13) BUN 8 (6-20) mg/dL Creatinine 0.7 (0.6-1.2) mg/dL Estimated GFR (MDRD) 108 (>89) Glucose 112 H (70-100) mg/dL POC Whole Bld Glucose 79 (70 - 100) mg/dL Calcium 8.7 (8.5-10.3) mg/dL Total Bilirubin 0.9 (0.2-1.0) mg/dL AST 19 (10-42) IU/L ALT 12 (10-60) IU/L Alkaline Phosphatase 53 (42-121) IU/L Total Protein 6.1 L (6.7-8.2) g/dL Albumin 3.1 L (3.2-5.5) g/dL Globulin 3.0 (2.1-4.2) g/dL Albumin/Globulin Ratio 1.0 (1.0-2.2) - Current Medications Current Medications: Current Medications Generic Name Dose Route Start Last Admin Trade Name Freq PRN Reason Stop Dose Admin Lactated Ringer's 1,000 mls @ 50 mls/hr 09/21/18 13:00 09/22/18 21:13 Lr IV 50 mls/hr .Q20H MABER Administration Pantoprazole Sodium 40 mg 09/22/18 07:00 09/22/18 07:23 Protonix PO Not Given QDAC AMBER Patient Own Med ( 1 each 09/22/18 09:00 09/22/18 08:33 Fluticasone [Flonase GREGORIO 1 each ] 50 Mcg) DAILY AMBER Administration Patient Own Med ( 1 each 09/21/18 21:00 09/22/18 22:25 Latanoprost 0.005% EACHEYE 1 each Ophth Drops [Xalatan QPM AMBER Administration ]) Patient Own Med ( 1 each 09/21/18 21:00 09/22/18 22:25 Timolol 0.5% Ophth EACHEYE 1 each Drops [Timoptic 0.5% BID AMBER Administration Ophth]) Sodium Chloride 10 ml 09/21/18 17:00 09/22/18 17:21 Normal Saline Flush 0.9% IVP Not Given 0100,0900,1700 AMBER - Physical Exam Wound/Incisions: positive: Healing well General Appearance: positive: No acute distress Eyes Bilateral: positive: No lid inflammation, Conjunctivae nml, No scleral icterus ENT: positive: No signs of dehydration Neck: positive: Trachea midline Respiratory: positive: Chest non-tender, No respiratory distress, Breath sounds nml Cardiovascular: positive: Regular rate & rhythm Abdomen: positive: Non-tender, No organomegaly, Abnml bowel sounds (Slightly decreased), Other (Some slight distention.) Skin: positive: Color nml Extremities: positive: Non-tender, Nml appearance Neurologic/Psychiatric: positive: Oriented x3, Motor nml, Sensation nml, Mood/affect nml, Other (His abdominal wall is numb.) ABX Reporting Has patient been on IV antibiotics over the past 48 hours?: Yes Impression/Plan - Problem List Problem List: Day 1 status post laparoscopic right hemicolectomy for an ascending colon lesion which was highly suspicious for malignancy 1) FEN Already on clear liquids as part of the ERAS protocol and I expect he will be advanced to general diet in the morning. 2) Pathology Pending. 3) Activity Ambulating well and in chair as part of the ERAS protocol. 4) ID No fever. No tachycardia. No tachypnea. Normal white blood cell count. No indication of infection. 5) Urinary retention I try to straight catheter earlier today with hope of keeping the Bennett out but this did not work. He again required a straight cath for over 1000 mL in his bladder and I instructed the nurse to leave the Bennett in. We will start Flomax in the morning and he may need to go home with the Bennett in place. I expect with a continuation of the ERAS protocol and without any unforeseen circumstances that the patient should be able to go home in less than 96 hours following his operation. Dragon disclaimer: This document was created in part using voice recognition technology. Because of the inherent limitations of the system ([employer] Dragon Dictate user manual states that the licensee understands that speech recognition is a statistical process and that recognition errors are inherent in the process), occasional same sounding word substitutions and grammatical errors do occur and persist despite proofreading. Please read this document for context.
[2018-09-23] MEDS: SODIUM CHLORIDE FLUSH 0.9% 10 ML SYRINGE IVP SCH ×3 (04:31→18:51)
[2018-09-23] MEDS: PANTOPRAZOLE 40 MG TABLET PO SCH (06:37)
[2018-09-23] MEDS: FLUTICASONE 50 MCG NAS SCH (08:30)
[2018-09-23] MEDS: TIMOLOL 0.5% EACHEYE SCH ×2 (08:30→20:04)
--- NOTE | 2018-09-23 09:26 | ANESTHESIA POST OP EVALUATION ---
Anesthesia Post Eval - Post Anesthesia Eval CV Function Including HR & BP: positive: Stable Pain Control: positive: Adequate Nausea & Vomiting: positive: Negative Mental Status: positive: Appropriate Anesthesia Complications: positive: None - Other Details/Therapies Other Details/Therapies: Patient anxious to go home. He has been having issues with urinary retention that could be related to the epidural. Epidural site looks clear tho catheter appears to have backed out to 9cm. Patient reports good pain control with epidural. Epidural drip turned off. Will reevaluate this afternoon. If pain tolerable without epidural, will d/c epidural.
[2018-09-23 11:19] LABS: BASOPHILS # (AUTO) 0.1 10^3/uL (0.0-0.1); BASOPHILS % (AUTO) 0.7 %; EOSINOPHILS # (AUTO) 0.1 10^3/uL (0.0-0.7); HGB - HEMOGLOBIN 10.6 g/dL (14.0-18.0); LYMPHOCYTES # (AUTO) 0.9 10^3/uL (1.5-3.5); LYMPHOCYTES % (AUTO) 10.9 %; MEAN CORPUSCULAR HEMOGLOBIN 30.7 pg (27.0-31.0); MEAN CORPUSCULAR HGB CONC 33.8 g/dL (32.0-36.0); MEAN CORPUSCULAR VOLUME 90.8 fL (80.0-94.0); MEAN PLATELET VOLUME 6.2 fL (7.4-11.4); MONOCYTES # (AUTO) 0.9 10^3/uL (0.0-1.0); MONOCYTES % (AUTO) 10.6 %; NEUTROPHILS # (AUTO) 6.7 10^3/uL (1.5-6.6); NEUTROPHILS % (AUTO) 76.8 %; PLT - PLATELET COUNT 365 10^3/uL (130-450); RED BLOOD COUNT 3.46 10^6/uL (4.70-6.10); RED CELL DISTRIBUTION WIDTH 16.1 % (12.0-15.0); WHITE BLOOD COUNT 8.7 x10^3/uL (4.8-10.8)
[2018-09-23 11:33] LABS: ALBUMIN 3.2 g/dL (3.2-5.5); ALBUMIN/GLOBULIN RATIO 0.9 (1.0-2.2); BILIRUBIN,TOTAL 0.6 mg/dL (0.2-1.0); CALCIUM 8.3 mg/dL (8.5-10.3); CREATININE 0.8 mg/dL (0.6-1.2); TOTAL PROTEIN 6.8 g/dL (6.7-8.2)
[2018-09-23] MEDS ORDERED: ACETAMINOPHEN 500 MG TABLET PO PRN (13:07)
[2018-09-23] MEDS ORDERED: INDOMETHACIN 25 MG PO PRN (13:09)
--- NOTE | 2018-09-23 13:13 | PROVIDER PROGRESS NOTE ---
Subjective - General Admit Date: 09/21/18 Procedure Date: 09/21/18 Post Op Days: 3 Procedure Performed: Laparoscopic right hemicolectomy - Review of Systems Wound/Incisions: positive: Healing well Drain Type: None. General: positive: No symptoms HEENT: positive: No symptoms Pulmonary: positive: No symptoms Cardiovascular: positive: No symptoms Gastrointestinal: positive: No symptoms, Other (He did pass gas today.) Genitourinary: positive: Retention (Requiring Bennett to be replaced.) Musculoskeletal: positive: No symptoms Psychiatric: positive: No symptoms Objective - Patient Data Reviewed Vital Signs: Yes Vital Signs: Vital Signs x48h Temp Pulse Pulse Resp BP BP Pulse Ox 09/23/18 12:23 37.6 C H 75 16 126/61 99 09/23/18 08:51 37.3 C 87 18 94/55 L 97 09/23/18 06:09 36.6 C 72 18 107/53 L 94 Weight: Weight 09/21/18 09/22/18 09/23/18 23:59 23:59 23:59 Weight (kg) 89.9 kg Intake & Output: Intake and Output Totals x24h 09/21/18 09/22/18 09/23/18 23:59 23:59 23:59 Intake Total 3280 3090 1220 Output Total 1800 9700 1800 Balance 5480 -8897 -580 - Lab Results Lab Results: 09/23/18 11:10 09/23/18 11:10 Other Lab Results: Lab Results x24hrs 09/23/18 09/23/18 09/23/18 Range/Units 11:56 11:10 11:10 WBC 8.7 (4.8-10.8) x10^3/uL RBC 3.46 L (4.70-6.10) 10^6/uL Hgb 10.6 L (14.0-18.0) g/dL Hct 31.4 L (42.0-52.0) % MCV 90.8 (80.0-94.0) fL MCH 30.7 (27.0-31.0) pg MCHC 33.8 (32.0-36.0) g/dL RDW 16.1 H (12.0-15.0) % Plt Count 365 (130-450) 10^3/uL MPV 6.2 L (7.4-11.4) fL Neut # (Auto) 6.7 H (1.5-6.6) 10^3/uL Lymph # (Auto) 0.9 L (1.5-3.5) 10^3/uL [place] # (Auto) 0.9 (0.0-1.0) 10^3/uL Eos # (Auto) 0.1 (0.0-0.7) 10^3/uL Baso # (Auto) 0.1 (0.0-0.1) 10^3/uL Absolute Nucleated RBC 0.00 x10^3/uL Nucleated RBC % 0.0 /100WBC Sodium 132 L (135-145) mmol/L Potassium 3.5 (3.5-5.0) mmol/L Chloride 99 L (101-111) mmol/L Carbon Dioxide 26 (21-32) mmol/L Anion Gap 7.0 (6-13) BUN 7 (6-20) mg/dL Creatinine 0.8 (0.6-1.2) mg/dL Estimated GFR (MDRD) 93 (>89) Glucose 90 (70-100) mg/dL POC Whole Bld Glucose 91 (70 - 100) mg/dL Calcium 8.3 L (8.5-10.3) mg/dL Total Bilirubin 0.6 (0.2-1.0) mg/dL AST 25 (10-42) IU/L ALT 13 (10-60) IU/L Alkaline Phosphatase 51 (42-121) IU/L Total Protein 6.8 (6.7-8.2) g/dL Albumin 3.2 (3.2-5.5) g/dL Globulin 3.6 (2.1-4.2) g/dL Albumin/Globulin Ratio 0.9 L (1.0-2.2) 09/23/18 09/23/18 09/23/18 Range/Units 06:04 00:57 00:27 WBC (4.8-10.8) x10^3/uL RBC (4.70-6.10) 10^6/uL Hgb (14.0-18.0) g/dL Hct (42.0-52.0) % MCV (80.0-94.0) fL MCH (27.0-31.0) pg MCHC (32.0-36.0) g/dL RDW (12.0-15.0) % Plt Count (130-450) 10^3/uL MPV (7.4-11.4) fL Neut # (Auto) (1.5-6.6) 10^3/uL Lymph # (Auto) (1.5-3.5) 10^3/uL [place] # (Auto) (0.0-1.0) 10^3/uL Eos # (Auto) (0.0-0.7) 10^3/uL Baso # (Auto) (0.0-0.1) 10^3/uL Absolute Nucleated RBC x10^3/uL Nucleated RBC % /100WBC Sodium (135-145) mmol/L Potassium (3.5-5.0) mmol/L Chloride (101-111) mmol/L Carbon Dioxide (21-32) mmol/L Anion Gap (6-13) BUN (6-20) mg/dL Creatinine (0.6-1.2) mg/dL Estimated GFR (MDRD) (>89) Glucose (70-100) mg/dL POC Whole Bld Glucose 117 H 93 66 L (70 - 100) mg/dL Calcium (8.5-10.3) mg/dL Total Bilirubin (0.2-1.0) mg/dL AST (10-42) IU/L ALT (10-60) IU/L Alkaline Phosphatase (42-121) IU/L Total Protein (6.7-8.2) g/dL Albumin (3.2-5.5) g/dL Globulin (2.1-4.2) g/dL Albumin/Globulin Ratio (1.0-2.2) 09/22/18 Range/Units 16:52 WBC (4.8-10.8) x10^3/uL RBC (4.70-6.10) 10^6/uL Hgb (14.0-18.0) g/dL Hct (42.0-52.0) % MCV (80.0-94.0) fL MCH (27.0-31.0) pg MCHC (32.0-36.0) g/dL RDW (12.0-15.0) % Plt Count (130-450) 10^3/uL MPV (7.4-11.4) fL Neut # (Auto) (1.5-6.6) 10^3/uL Lymph # (Auto) (1.5-3.5) 10^3/uL [place] # (Auto) (0.0-1.0) 10^3/uL Eos # (Auto) (0.0-0.7) 10^3/uL Baso # (Auto) (0.0-0.1) 10^3/uL Absolute Nucleated RBC x10^3/uL Nucleated RBC % /100WBC Sodium (135-145) mmol/L Potassium (3.5-5.0) mmol/L Chloride (101-111) mmol/L Carbon Dioxide (21-32) mmol/L Anion Gap (6-13) BUN (6-20) mg/dL Creatinine (0.6-1.2) mg/dL Estimated GFR (MDRD) (>89) Glucose (70-100) mg/dL POC Whole Bld Glucose 71 (70 - 100) mg/dL Calcium (8.5-10.3) mg/dL Total Bilirubin (0.2-1.0) mg/dL AST (10-42) IU/L ALT (10-60) IU/L Alkaline Phosphatase (42-121) IU/L Total Protein (6.7-8.2) g/dL Albumin (3.2-5.5) g/dL Globulin (2.1-4.2) g/dL Albumin/Globulin Ratio (1.0-2.2) - Current Medications Current Medications: Current Medications Generic Name Dose Route Start Last Admin Trade Name Freq PRN Reason Stop Dose Admin Lactated Ringer's 1,000 mls @ 50 mls/hr 09/21/18 13:00 09/22/18 21:13 Lr IV 50 mls/hr .Q20H AMBER Administration Pantoprazole Sodium 40 mg 09/22/18 07:00 09/23/18 06:37 Protonix PO Not Given QDAC AMBER Patient Own Med ( 1 each 09/22/18 09:00 09/23/18 08:30 Fluticasone [Flonase GREGORIO 1 each ] 50 Mcg) DAILY AMBER Administration Patient Own Med ( 1 each 09/21/18 21:00 09/22/18 22:25 Latanoprost 0.005% EACHEYE 1 each Ophth Drops [Xalatan QPM AMBER Administration ]) Patient Own Med ( 1 each 09/21/18 21:00 09/23/18 08:30 Timolol 0.5% Ophth EACHEYE 1 each Drops [Timoptic 0.5% BID AMBER Administration Ophth]) Sodium Chloride 10 ml 09/21/18 17:00 09/23/18 08:27 Normal Saline Flush 0.9% IVP Not Given 0100,0900,1700 ABMER - Physical Exam Wound/Incisions: positive: Healing well General Appearance: positive: No acute distress, Other (Feels slightly warm.) Eyes Bilateral: positive: No lid inflammation, Conjunctivae nml, No scleral icterus ENT: positive: No signs of dehydration Neck: positive: Trachea midline Respiratory: positive: Chest non-tender, No respiratory distress, Breath sounds nml Cardiovascular: positive: Regular rate & rhythm Abdomen: positive: Non-tender, Other (Slightly distended.) Skin: positive: Color nml Extremities: positive: Non-tender, Nml appearance Neurologic/Psychiatric: positive: Oriented x3, Motor nml, Sensation nml, Mood/affect nml ABX Reporting Has patient been on IV antibiotics over the past 48 hours?: No Impression/Plan - Problem List Problem List: Day 2 status post laparoscopic right hemicolectomy for an ascending colon lesion which was highly suspicious for malignancy 1) FEN Diet advanced today. 2) Pathology Pending. 3) Activity Ambulating well and in chair as part of the ERAS protocol. 4) ID No fever. No tachycardia. No tachypnea. Normal white blood cell count. No indication of infection. 5) Urinary retention I try to straight catheter earlier today with hope of keeping the Bennett out but this did not work. He again required a straight cath for over 1000 mL in his bladder and I instructed the nurse to leave the Bennett in . We will start Flomax in the morning and he may need to go home with the Bennett in place. I expect with a continuation of the ERAS protocol and without any unforeseen circumstances that the patient should be able to go home in less than 96 hours following his operation. I am anticipating discharge tomorrow. Again this woudl certainly fall less than 96 hours from the operation. Tadeo disclaimer: This document was created in part using voice recognition technology. Because of the inherent limitations of the system ([employer]'s Dragon Dictate user manual states that the licensee understands that speech recognition is a statistical process and that recognition errors are inherent in the process), occasional same sounding word substitutions and grammatical errors do occur and persist despite proofreading. Please read this document for context.
[2018-09-23] MEDS: LACTATED RINGERS 1,000 ML IV SCH (16:59)
[2018-09-23] MEDS ORDERED: TAMSULOSIN 0.4 MG CAPSULE PO SCH (17:00)
[2018-09-23] MEDS: LATANOPROST 0.005% EACHEYE SCH (20:05)
[2018-09-24] MEDS: SODIUM CHLORIDE FLUSH 0.9% 10 ML SYRINGE IVP SCH ×2 (04:33→08:27)
[2018-09-24] MEDS: PANTOPRAZOLE 40 MG TABLET PO SCH (06:52)
[2018-09-24] MEDS ORDERED: TAMSULOSIN 0.4 MG CAPSULE PO SCH (07:00)
[2018-09-24 08:08] VITALS: BP 134/69
[2018-09-24] MEDS: TIMOLOL 0.5% EACHEYE SCH (08:27)
[2018-09-24] MEDS: FLUTICASONE 50 MCG NAS SCH (08:27)
[2018-09-24] MEDS ORDERED: POLYETHYLENE GLYCOL 3350 17 GM PACKET PO SCH (09:00)
--- NOTE | 2018-09-24 12:07 | DISCHARGE SUMMARY ---
"Discharge Summary Admit Date: 09/21/18 Discharge Date: 09/24/18 Discharging Provider: Jaya Silverio MD Primary Care Provider: Michelle Camacho MD Code Status: Attempt Resuscitation Condition at Discharge: Good Discharge Disposition: 01 Home, Self Care - DIAGNOSES Admission Diagnoses: Polyp in ascending colon highly suspicious for malignancy Discharge Diagnoses with Status of Each Condition: Resected - gone. Pathology confirms complete excision without involved lymph nodes. 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 Elective RIGHT laparoscopic hemicolectomy planned and completed 09/21/18/ - CONSULTS | PROCEDURES Consultations: None. Procedures: Laparoscopic RIGHT hemicolectomy on 09/21/18 by Jaya Silverio MD - ALLERGIES Allergies/Adverse Reactions: Allergies Allergy/AdvReac Type Severity Reaction Status Date / Time cephalexin monohydrate * Allergy Severe Respiratory Verified 09/21/18 08:11 [From Keflex] - MEDICATIONS Home Medications: Ambulatory Orders Medication Instructions Recorded Confirmed Cholecalciferol (Vitamin D3) 2,000 unit PO DAILY 05/18/13 09/17/18 [Vitamin D3] Ferrous Gluconate 324 mg PO DAILY 05/18/13 09/17/18 Latanoprost 0.005% Ophth Drops 1 drops OPTH QPM 05/18/13 09/17/18 [Xalatan] Timolol 0.5% Ophth Drops [Timoptic] 1 drops OPTH BID 05/18/13 09/17/18 Turmeric Root Extract [Turmeric] 500 mg PO DAILY 05/18/13 09/17/18 Indomethacin 25 mg PO TID PRN 11/10/15 09/23/18 Cyanocobalamin (Vitamin B-12) 100 mcg PO DAILY 09/17/18 09/17/18 [Vitamin B-12 (100mcg tab)] Methylsulfonylmethane [MSM] 1,000 mg PO DAILY 09/17/18 09/17/18 [place]-3/Dha/Epa/Fish Oil [Fish Oil 1 each PO DAILY 09/17/18 09/17/18 1,000 mg Softgel] Ubidecarenone/Vit E Acetate [Co 1 each PO DAILY 09/17/18 09/17/18 Q-10 100 mg Softgel] Valacyclovir HCl [Valtrex] 1,000 mg PO ONCE PRN 09/17/18 09/17/18 Vitamin E 1,000 unit PO DAILY 09/17/18 09/17/18 Fluticasone [Flonase] 50 mcg GREGORIO DAILY 09/21/18 09/21/18 Home Medications Other | Comments: Patient will be sent home with Flomax 0.4 mg nightly for prostatism. - PHYSICAL EXAM AT DISCHARGE General Appearance: positive: No acute distress Eyes Bilateral: positive: No lid inflammation, Conjunctivae nml, No scleral icterus ENT: positive: No signs of dehydration Neck: positive: Trachea midline Respiratory: positive: Chest non-tender, No respiratory distress, Breath sounds nml Cardiovascular: positive: Regular rate & rhythm Abdomen: positive: Non-tender, No organomegaly, Nml bowel sounds Skin: positive: Color nml Extremities: positive: Non-tender, Nml appearance Neurologic/Psychiatric: positive: Oriented x3, Motor nml, Sensation nml, Mood/affect nml - LABS Result Diagrams: 09/23/18 11:10 09/23/18 11:10 - FOLLOW UP Follow Up: This Thursday09/27/18 for Bennett removal in my office. Patient will be going home with the Bennett in place as he failed 2 attempts at removal. - TIME SPENT Time Spent in Discharge (Minutes): 45 (Paperwork, conversation with patient, examination, and coordination with my office for follow up.)"
--- NOTE | 2018-09-24 12:23 | Discharge Plan ---
Discharge Plan Disposition: Home, Self Care Condition: Good Prescriptions: Tamsulosin [Flomax] 0.4 mg PO QPM #60 capsule Diet: Regular Activity Restrictions: No lifting >15 pounds. Shower Restrictions: No Driving Restrictions: No Assistance Devices: Other (As needed. Has cane and walker at home.) Instruction Topics: Tamsulosin capsules Additional Instructions or Follow Up instructions: Patient should have an appointment THIS Thursday for Bennett removal. No Smoking: If you smoke, Please STOP! Call for help. Follow-up with: Michelle Camacho MD [Primary Care Provider] - Jaya Silverio MD [Provider Admit Priv/Credential] -
[2018-09-24] MEDS ORDERED: cefOXitin 2 GM in SODIUM CHLORIDE 0.9% MINIBAG 100 ML IV ONE (14:20)
== END 2018-09-24 14:21 | disposition home or self-care (01) | DRG 331 ==
LOC: MS2 07:10
PROVIDERS: ADMIT Surgery; ATTEND Surgery
PROC: 0DTF4ZZ Resection of Right Large Intestine, Percutaneous Endoscopic Approach (ICD-10-PCS; principal; 2018-09-21 08:15)
DX: D12.2 Benign neoplasm of ascending colon (principal); Z87.891 Personal history of nicotine dependence
CPT/HCPCS: 36415; 80053; 85025

== ENCOUNTER 2019-03-16 08:00 | Outpatient (CLI) | payer MEDICARE, OTHER | END 2019-03-16 23:59 | disposition home or self-care (01) | LOC: LAB.WCP 08:00 | PROVIDERS: ATTEND Internal Medicine Rheumatology | DX: M19.90 Unspecified osteoarthritis, unspecified site (principal) | CPT/HCPCS: 36415; 84550 ==

== ENCOUNTER 2019-09-14 11:35 | Outpatient (CLI) | payer MEDICARE, OTHER | END 2019-09-14 23:59 | disposition home or self-care (01) | LOC: LAB.WCP 11:35 | PROVIDERS: ATTEND Internal Medicine Rheumatology | DX: M06.4 Inflammatory polyarthropathy (principal) | CPT/HCPCS: 36415; 84550 ==

== ENCOUNTER 2021-10-22 11:19 | Outpatient (CLI) | payer MEDICARE, OTHER ==
--- NOTE | 2021-10-22 14:27 | XRAY Report ---
PROCEDURE: Chest 2 View X-Ray INDICATIONS: COUGH TECHNIQUE: 2 view(s) of the chest. COMPARISON: 02/23/2018 FINDINGS: Surgical changes and devices: Pacemaker. Lungs and pleura: No pleural effusions or pneumothorax. Bilateral pulmonary fibrosis, as before, not significant changed. Mediastinum: Mediastinal contours are normal. Heart size is normal. Bones and chest wall: No suspicious bony abnormalities. Soft tissues appear unremarkable. IMPRESSION: Bilateral chronic interstitial pulmonary fibrosis. Stable findings. Reviewed by: Mauricio Lester MD on 10/22/2021 2:26 PM PST Approved by: Mauricio Lester MD on 10/22/2021 2:26 PM PST Station ID: [id number]
== END 2021-10-22 11:20 | disposition home or self-care (01) ==
LOC: DI 11:19
PROVIDERS: ATTEND Internal Medicine
DX: J84.10 Pulmonary fibrosis, unspecified (principal)

== ENCOUNTER 2022-07-29 08:00 | Outpatient (CLI) | payer MEDICARE, OTHER ==
[2022-07-29 16:07] LABS: BASOPHILS # (AUTO) 0.1 10^3/uL (0.0-0.1); BASOPHILS % (AUTO) 1.1 %; EOSINOPHILS # (AUTO) 0.4 10^3/uL (0.0-0.7); EOSINOPHILS % (AUTO) 6.9 %; HGB - HEMOGLOBIN 13.5 g/dL (14.0-18.0); LYMPHOCYTES # (AUTO) 1.5 10^3/uL (1.5-3.5); LYMPHOCYTES % (AUTO) 28.1 %; MEAN CORPUSCULAR HEMOGLOBIN 31.6 pg (27.0-31.0); MEAN CORPUSCULAR HGB CONC 32.9 g/dL (32.0-36.0); MEAN PLATELET VOLUME 9.3 fL (7.4-11.4); MONOCYTES # (AUTO) 0.5 10^3/uL (0.0-1.0); MONOCYTES % (AUTO) 10.1 %; NEUTROPHILS # (AUTO) 2.9 10^3/uL (1.5-6.6); NEUTROPHILS % (AUTO) 53.6 %; PLT - PLATELET COUNT 234 10^3/uL (130-450); RED BLOOD COUNT 4.27 10^6/uL (4.70-6.10); WHITE BLOOD COUNT 5.3 x10^3/uL (4.8-10.8)
[2022-07-29 16:26] LABS: ALBUMIN/GLOBULIN RATIO 1.1 (1.0-2.2); ALKALINE PHOSPHATASE 57 IU/L (42-121); ALT ALANINE AMINOTRANSFERASE 14 IU/L (10-60); AST ASPARTATE AMINOTRANSFERASE 24 IU/L (10-42); BILIRUBIN,TOTAL 0.9 mg/dL (0.2-1.0); BUN - BLOOD UREA NITROGEN 11 mg/dL (6-20); CALCIUM 9.4 mg/dL (8.5-10.3); CARBON DIOXIDE - CO2 30 mmol/L (21-32); CHLORIDE 101 mmol/L (101-111); CHOL/HDL RATIO 3.8 (<5.0); CHOLESTEROL 211 mg/dL; CREATININE 0.9 mg/dL (0.6-1.2); GFR - MDRD 80 (>89); GLUCOSE 90 mg/dL (70-100); HDL CHOLESTEROL 56 mg/dL; LDL CHOLESTEROL,CALCULATED 144 mg/dL; LDL/HDL RATIO 2.6 (<3.6); SODIUM 140 mmol/L (135-145); TOTAL PROTEIN 7.5 g/dL (6.7-8.2); TRIGLYCERIDES 57 mg/dL; URIC ACID 4.5 mg/dL (2.6-7.2); VLDL CHOLESTEROL 11 mg/dL
[2022-07-29 19:52] LABS: ESTIMATED AVERAGE GLUCOSE 117 mg/dL (70-100); HEMOGLOBIN A1c% 5.7 % (4.27-6.07)
== END 2022-07-29 23:59 | disposition home or self-care (01) ==
LOC: LAB.R 08:00
PROVIDERS: ATTEND Internal Medicine
DX: Z00.00 Encounter for general adult medical examination without abnormal findings (principal); Z79.899 Other long term (current) drug therapy; D64.9 Anemia, unspecified; N40.0 Benign prostatic hyperplasia without lower urinary tract symptoms; R00.1 Bradycardia, unspecified; K29.80 Duodenitis without bleeding; L30.9 Dermatitis, unspecified; R53.83 Other fatigue; K29.70 Gastritis, unspecified, without bleeding; M10.9 Gout, unspecified; H91.90 Unspecified hearing loss, unspecified ear; R19.5 Other fecal abnormalities; A60.00 Herpesviral infection of urogenital system, unspecified; Z86.010 Personal history of colon polyps; R73.9 Hyperglycemia, unspecified; E78.5 Hyperlipidemia, unspecified; J84.9 Interstitial pulmonary disease, unspecified; M19.90 Unspecified osteoarthritis, unspecified site; J30.2 Other seasonal allergic rhinitis
CPT/HCPCS: 80053; 80061; 83036; 83721; 84443; 84550; 85025

== ENCOUNTER 2023-12-21 00:30 | Outpatient (CLI) | payer MEDICARE, OTHER | END 2023-12-21 23:59 | disposition short-term general hospital (02) | LOC: EMS 00:30 | PROVIDERS: ATTEND Emergency Medicine | DX: L76.22 Postprocedural hemorrhage of skin and subcutaneous tissue following other procedure (principal) | CPT/HCPCS: A0425; A0429; A0888 ==

== ENCOUNTER 2024-01-23 12:16 | Outpatient (CLI) | payer MEDICARE, OTHER ==
[2024-01-23 18:34] LABS: BASOPHILS # (AUTO) 0.1 10^3/uL (0.0-0.1); BASOPHILS % (AUTO) 0.8 %; EOSINOPHILS # (AUTO) 0.5 10^3/uL (0.0-0.7); EOSINOPHILS % (AUTO) 8.1 %; HCT - HEMATOCRIT 30.7 % (42.0-52.0); HGB - HEMOGLOBIN 9.4 g/dL (14.0-18.0); LYMPHOCYTES # (AUTO) 1.1 10^3/uL (1.5-3.5); LYMPHOCYTES % (AUTO) 19.2 %; MEAN CORPUSCULAR HEMOGLOBIN 29.2 pg (27.0-31.0); MEAN CORPUSCULAR HGB CONC 30.6 g/dL (32.0-36.0); MEAN CORPUSCULAR VOLUME 95.3 fL (80.0-94.0); MEAN PLATELET VOLUME 8.6 fL (7.4-11.4); MONOCYTES # (AUTO) 0.6 10^3/uL (0.0-1.0); MONOCYTES % (AUTO) 9.8 %; NEUTROPHILS # (AUTO) 3.6 10^3/uL (1.5-6.6); NEUTROPHILS % (AUTO) 61.8 %; PLT - PLATELET COUNT 419 10^3/uL (130-450); RED BLOOD COUNT 3.22 10^6/uL (4.70-6.10); RED CELL DISTRIBUTION WIDTH 14.6 % (12.0-15.0); WHITE BLOOD COUNT 5.9 x10^3/uL (4.8-10.8)
[2024-01-23 19:11] LABS: ALBUMIN 3.6 g/dL (3.2-5.5); BILIRUBIN,TOTAL 0.5 mg/dL (0.2-1.0); CALCIUM 9.6 mg/dL (8.5-10.3); CREATININE 0.8 mg/dL (0.6-1.3); POTASSIUM 3.9 mmol/L (3.5-4.5); TOTAL PROTEIN 7.2 g/dL (6.4-8.9); URIC ACID 3.6 mg/dL (4.4-7.6)
[2024-01-23 19:20] LABS: THYROID STIMULATING HORMONE 2.38 uIU/mL (0.34-5.60)
== END 2024-01-23 12:17 | disposition home or self-care (01) ==
LOC: LAB.N 12:16
PROVIDERS: ATTEND Internal Medicine
DX: C18.9 Malignant neoplasm of colon, unspecified (principal); Z79.899 Other long term (current) drug therapy; R60.9 Edema, unspecified; M10.9 Gout, unspecified
CPT/HCPCS: 36415; 80053; 83880; 84443; 84550; 85025

== ENCOUNTER 2024-01-29 19:13 | Outpatient (CLI) | payer MEDICARE, OTHER ==
--- NOTE | 2024-01-29 21:58 | Ultrasound Report ---
PROCEDURE: Duplex Ext Veins Bilateral INDICATIONS: Michelle Camacho MD TECHNIQUE: Real-time imaging, as well as color and pulse Doppler interrogation, were performed of the deep veins of both legs from the inguinal ligament to the popliteal fossa. Attempted visualization of the calf veins was performed. COMPARISON: None. FINDINGS: The deep veins are normally compressible, and free of intraluminal thrombus. Color and pu lse Doppler demonstrate normal phasic intravascular flow. There is normal augmentation response to d istal compression maneuver. Bilateral medial popliteal Treadwell's cyst. Small amount of fluid signal is seen adjacent to the ankles bilaterally. IMPRESSION: 1.No deep venous thrombosis of the visualized lower extremities. 2.Bilateral small medial popliteal cysts. 3.Small nonspecific fluid collections adjacent to the ankles bilaterally evidence of uncertain etiolo gy. Reviewed by: Lukasz Romo MD on 01/29/2024 9:57 PM PDT Approved by: Lukasz Romo MD on 01/29/2024 9:57 PM PDT Station ID: [id number]
== END 2024-01-29 19:14 | disposition home or self-care (01) ==
LOC: DI 19:13
PROVIDERS: ATTEND Internal Medicine
DX: M71.22 Synovial cyst of popliteal space [Baker], left knee (principal); M71.21 Synovial cyst of popliteal space [Baker], right knee
CPT/HCPCS: 93970

== ENCOUNTER 2024-03-17 17:22 | Outpatient (CLI) | payer MEDICARE, OTHER ==
[2024-03-17 18:18] LABS: BASOPHILS # (AUTO) 0.1 10^3/uL (0.0-0.1); BASOPHILS % (AUTO) 0.6 %; BILIRUBIN,URINE NEGATIVE (NEGATIVE); EOSINOPHILS # (AUTO) 0.3 10^3/uL (0.0-0.7); EOSINOPHILS % (AUTO) 3.4 %; GLUCOSE, URINE (UA) NEGATIVE (NEGATIVE); HCT - HEMATOCRIT 25.6 % (42.0-52.0); HGB - HEMOGLOBIN 7.7 g/dL (14.0-18.0); KETONES,URINE (UA) NEGATIVE (NEGATIVE); LEUKOCYTE ESTERASE, URINE NEGATIVE (NEGATIVE); LYMPHOCYTES # (AUTO) 1.1 10^3/uL (1.5-3.5); LYMPHOCYTES % (AUTO) 14.3 %; MEAN CORPUSCULAR HEMOGLOBIN 27.3 pg (27.0-31.0); MEAN CORPUSCULAR HGB CONC 30.1 g/dL (32.0-36.0); MEAN CORPUSCULAR VOLUME 90.8 fL (80.0-94.0); MEAN PLATELET VOLUME 8.1 fL (7.4-11.4); MONOCYTES # (AUTO) 0.8 10^3/uL (0.0-1.0); MONOCYTES % (AUTO) 9.9 %; NEUTROPHILS # (AUTO) 5.7 10^3/uL (1.5-6.6); NEUTROPHILS % (AUTO) 71.4 %; NITRITE,URINE NEGATIVE (NEGATIVE); OCCULT BLOOD,URINE TRACE-LYSE (NEGATIVE); PLT - PLATELET COUNT 487 10^3/uL (130-450); PROTEIN,URINE NEGATIVE (NEGATIVE); RED BLOOD COUNT 2.82 10^6/uL (4.70-6.10); RED CELL DISTRIBUTION WIDTH 16.2 % (12.0-15.0); UROBILINOGEN,URINE 0.2 (NORMAL) E.U./dL (NORMAL)
[2024-03-17 18:21] LABS: VBG BASE EXCESS 2.1 mmol/L (-2 - +2); VBG HCO3 26.7 mmol/L (23-28); VBG OXYGEN SATURATION 43.4 % (60-80); VBG PCO2 41.4 mmHg (41-51); VBG PH 7.427 (7.31-7.41); VBG PO2 23.8 mmHg (25-47); VBG TOTAL CO2 27.9 mmol/L (24-29)
[2024-03-17 18:26] LABS: BACTERIA,URINE None Seen /HPF (None Seen); CLARITY,URINE CLEAR (CLEAR); RBC,URINE 0-5 /HPF (0-5); SQUAMOUS EPITHELIAL CELL,UR NONE SEEN (<= Few); WBC,URINE 0-3 /HPF (0-3)
[2024-03-17 18:32] LABS: ALBUMIN 3.4 g/dL (3.2-5.5); ALBUMIN/GLOBULIN RATIO 0.8 (1.0-2.2); BILIRUBIN,TOTAL 0.4 mg/dL (0.2-1.0); CALCIUM 9.6 mg/dL (8.5-10.3); CREATININE 0.7 mg/dL (0.6-1.3); POTASSIUM 4.1 mmol/L (3.5-4.5); TOTAL PROTEIN 7.9 g/dL (6.4-8.9)
[2024-03-17 18:45] LABS: THYROID STIMULATING HORMONE 2.21 uIU/mL (0.34-5.60)
[2024-03-18 12:57] LABS: FERRITIN 307.5 ng/mL (23.9-336.2)
== END 2024-03-17 17:23 | disposition home or self-care (01) ==
LOC: LAB 17:22
PROVIDERS: ATTEND Internal Medicine
DX: M25.50 Pain in unspecified joint (principal); M25.60 Stiffness of unspecified joint, not elsewhere classified; R53.1 Weakness; R40.0 Somnolence
CPT/HCPCS: 36415; 80053; 81001; 82140; 82607; 82728; 82803; 83519; 83540; 83605; 83880; 84443; 84466; 85025; 87040; 87086